=== PATIENT | female | born 1960 | race Caucasian/White ===

== ENCOUNTER → 2021-02-06 | Outpatient (CLI) | payer OTHER ==
--- NOTE | 2021-02-08 06:39 | BD ---
EXAMINATION TYPE: Axial Bone Density DATE OF EXAM: 02/06/2021 COMPARISON: NONE CLINICAL HISTORY: Postmenopausal female Height: 65 IN Weight: 172 LBS FRAX RISK QUESTIONS: Alcohol (3 or more units per day): YES RISK FACTORS HISTORY OF: Active: YES Diet low in dairy products/other sources of calcium: YES Postmenopausal woman: AGE 46 MEDICATIONS: Additional Medications: CALCIUM, VIT D, EXAM MEASUREMENTS: Bone mineral densitometry was performed using the A-TEX System. Bone mineral density as measured about the Lumbar spine is: ----- L1-L4(G/cm2): 1.225 T Score Values are as follows: ----- L2: 0.1 ----- L3: 0.8 ----- L4: 0.5 ----- L1-L4: 0.4 Bone mineral density BASELINE Bone mineral density about the R hip (g/cm2): 0.871 Bone mineral density about the L hip (g/cm2): 0.800 T Score values are as follows: -----R Neck: -1.2 -----L Neck: -1.7 -----R Total: -1.5 -----L Total: -1.3 Bone mineral density BASELINE IMPRESSION: Osteopenia (T Score between -2.5 and -1) in both hips. There is slightly increased risk of fracture and the patient may be considered for treatment. Re-Screen 2-5 years. NOTE: T-SCORE=SD OF THE YOUNG ADULT MEAN.
--- NOTE | 2021-02-13 10:59 | MM ---
Reason for exam: screening (asymptomatic). Last mammogram was performed 2 years and 8 months ago. History: Patient is postmenopausal. Physical Findings: A clinical breast exam by your physician is recommended on an annual basis and results should be correlated with mammographic findings. MG 3D Screening Mammo W/Cad Bilateral CC and MLO view(s) were taken. Prior study comparison: June 19, 2018, mammogram, performed at [facility]. December 15, 2015, mammogram, performed at [facility]. There are scattered fibroglandular densities. There are benign appearing round calcifications bilaterally. There is chronic nodularity in the right breast, decreased in size and in the left breast, stable. There is no new dominant lesion. ASSESSMENT: Benign, BI-RAD 2 RECOMMENDATION: Routine screening mammogram of both breasts in 1 year.
== END | disposition home or self-care (01) ==
LOC: RADMAMWWP 13:58
PROVIDERS: ATTEND Family Medicine
DX: Z12.31 Encounter for screening mammogram for malignant neoplasm of breast (principal); Z78.0 Asymptomatic menopausal state; M85.89 Other specified disorders of bone density and structure, multiple sites
CPT/HCPCS: 77063; 77067; 77080